=== PATIENT | male | born 1940 | race Asian ===

== ENCOUNTER 2017-07-30 02:16 | Emergency (ER) | payer MEDICARE, OTHER ==
[~2017-07-30] VITALS: Ht 167.6 cm; Wt 72.6 kg
[~2017-07-30 02:16] MED LIST: ASA81 PO; HYT1 PO; LIP80 PO; LOSA100T11 PO; METF1000 PO; METO-442 PO; NOR10 PO; OMEP20CA10 PO
[2017-07-30 02:25] VITALS: BP_SYST 146
[2017-07-30 03:10] VITALS: BP_SYST 146
== END 2017-07-30 03:10 | disposition home or self-care (01) ==
LOC: SED 02:16
DX: I10 Essential (primary) hypertension (principal); E11.9 Type 2 diabetes mellitus without complications; Z90.49 Acquired absence of other specified parts of digestive tract; Z79.899 Other long term (current) drug therapy
CPT/HCPCS: 99281

== ENCOUNTER 2018-10-23 21:32 | Emergency (ER) | payer OTHER ==
[~2018-10-23] VITALS: Ht 167.6 cm; Wt 68.0 kg
[~2018-10-23 21:32] MED LIST changes: -HYT1 PO; -LOSA100T11 PO; -NOR10 PO; +SILO8CAP2 PO; +VALS320T2 PO
[2018-10-23 21:46] VITALS: BP_SYST 133
--- NOTE | 2018-10-23 21:52 | NUR ---
Patient AOx4, ambulatory, presents to ER with complaint of occiput discomfort 1-2 pain. Patient states he fell on friday and hit his head, at that time he didn't exhibit symptoms or discomfort. Patient states that the occiput discomfort began. Patient states no visual changes. Patient has not medicated for pain. No other symptoms or complaints.
--- NOTE | 2018-10-23 21:52 | NUR ---
Patient to ER bed 08 to gown for evaluation. Side rails up. Report given to HARRY Coelho.
--- NOTE | 2018-10-23 21:59 | NUR ---
ER MD Mcgarry at bedside for medical evaluation.
[2018-10-23] MEDS ORDERED: IBUPROFEN 600 MG TABLET PO ONE (22:00)
--- NOTE | 2018-10-23 22:08 | NUR ---
Ibuprofen 600mg PO administered. Pt tolerated well. No adverse reactions noted. Will continue to monitor.
--- NOTE | 2018-10-23 22:13 | NUR ---
Pt taken to radiology via gurney in stable condition.
--- NOTE | 2018-10-23 22:30 | NUR ---
Pt returned from radiology via [facility] in stable condition.
--- NOTE | 2018-10-23 23:21 | NUR ---
Pt reports 0/10 pain
[2018-10-23 23:40] VITALS: BP_SYST 128
--- NOTE | 2018-10-23 23:40 | NUR ---
Patient given written and verbal discharge instructions and verbalizes understanding. ER MD discussed with patient the results and treatment provided. Patient in stable condition. ID arm band removed. Rx of Ibuprofen given. Patient educated on pain management and to follow up with PMD. Pain Scale 0/10. Opportunity for questions provided and answered. Medication side effect fact sheet provided.
== END 2018-10-23 23:40 | disposition home or self-care (01) ==
LOC: SED 21:32
DX: S16.1XXA Strain of muscle, fascia and tendon at neck level, initial encounter (principal); S09.90XA Unspecified injury of head, initial encounter; E11.9 Type 2 diabetes mellitus without complications; I10 Essential (primary) hypertension; Z90.49 Acquired absence of other specified parts of digestive tract; Z79.82 Long term (current) use of aspirin; Z79.899 Other long term (current) drug therapy; W01.198A Fall on same level from slipping, tripping and stumbling with subsequent striking against other object, initial encounter; Y93.89 Activity, other specified; Y92.89 Other specified places as the place of occurrence of the external cause; Y99.8 Other external cause status
CPT/HCPCS: 70450-TC; 72125-TC; 99284

== ENCOUNTER 2020-01-26 07:03 | Emergency (ER) | payer OTHER ==
[~2020-01-26] VITALS: Ht 160 cm; Wt 68.0 kg
[2020-01-26 07:03] VITALS: BP_SYST 152
[~2020-01-26 07:03] MED LIST changes: -OMEP20CA10 PO; +OMEP20CA11 PO
--- NOTE | 2020-01-26 07:03 | NUR ---
Patient to ER bed 3 to gown for evaluation. Side rails up. Report given to HARRY Choi.
--- NOTE | 2020-01-26 07:05 | NUR ---
Pt walked in to ER with c/o diarrhea x1 day with dark red blood noted. Denies any other trauma. No n/v or abdominal pain. Currently resting in bed, will continue to monitor.
--- NOTE | 2020-01-26 07:10 | NUR ---
ER Dr. Alejandro at bedside examining patient.
[2020-01-26] MEDS ORDERED: NACL 0.9% 1,000 ML IV ONE (07:12)
[2020-01-26] MEDS ORDERED: PANTOPRAZOLE SODIUM 40 MG/VIAL (PROTONIX) IVP ONE (07:15)
--- NOTE | 2020-01-26 07:15 | NUR ---
# 20 gauge angiocath placed to LAC. Use of asceptic technique. Opsite placed over site. Blood return noted. Blood for lab drawn from site. Flushed with 10 cc of normal saline. No evidence of infiltration noted. Patient tolerated well.
--- NOTE | 2020-01-26 07:20 | NUR ---
EKG performed at BS by RN. Physician given copy of EKG for review.
[2020-01-26 07:41] LABS: BASOPHILS % (AUTO) 1.1 % (0.0-2.0); EOSINOPHILS # (AUTO) 0.2 K/uL (0.0-0.4); HEMATOCRIT 41.7 % (36-54); HEMOGLOBIN 13.6 g/dL (14.0-18.0); LYMPHOCYTES # (AUTO) 0.9 K/uL (1.0-5.5); LYMPHOCYTES % (AUTO) 22.6 % (20.5-51.5); MEAN CORPUSCULAR HEMOGLOBIN 27 pg (27-31); MEAN CORPUSCULAR HGB CONC 33 % (32-36); MEAN CORPUSCULAR VOLUME 84 fL (79.0-98.0); MONOCYTES # (AUTO) 0.3 K/uL (0.0-1.0); MONOCYTES % (AUTO) 6.8 % (1.7-9.3); NEUTROPHILS # (AUTO) 2.6 K/uL (1.8-7.7); NEUTROPHILS % (AUTO) 64.5 % (40.0-70.0); PLATELET COUNT (AUTO) 151 K/uL (130-430); RED BLOOD CELL COUNT(AUTO) 4.98 MIL/uL (4.2-6.2); RED CELL DISTRIBUTION WIDTH 14.7 % (9.0-15.0)
[2020-01-26 07:55] LABS: BILIRUBIN,URINE NEGATIVE (NEGATIVE); BLOOD, URINE NEGATIVE (NEGATIVE); CLARITY/URINE CLEAR (CLEAR); COLOR,URINE YELLOW (YELLOW); GLUCOSE,URINE 3+ (NEGATIVE); KETONES,URINE NEGATIVE (NEGATIVE); LEUKOCYTE ESTERASE ,URINE NEGATIVE (NEGATIVE); NITRITE, URINE NEGATIVE (NEGATIVE); PH,URINE 5.5 (5.0-8.0); PROTEIN URINE TRACE (NEGATIVE); UROBILINOGEN,URINE 0.2 (0.2-1.0)
--- NOTE | 2020-01-26 07:55 | NUR ---
1L NS bolus infusing as ordered.
[2020-01-26 07:57] LABS: ANION GAP 9 (5-15); CALCIUM 8.4 mg/dL (8.4-11.0); CHLORIDE 104 mmol/L (98-107); CREATININE 0.94 mg/dL (0.55-1.30); GLUCOSE 138 mg/dL (70-99); POTASSIUM 3.9 mmol/L (3.5-5.1); SODIUM SERUM 139 mmol/L (136-145); UREA NITROGEN, BLOOD 20 mg/dL (8-21)
[2020-01-26 08:02] LABS: ALANINE AMINOTRANSFERASE 30 U/L (12-78); ALBUMIN 3.8 g/dL (3.4-4.8); AMYLASE 74 U/L (0-100); ASPARTATE AMINOTRANSFERASE 20 U/L (10-37); LIPASE 179 U/L (73-393); TOTAL BILIRUBIN 0.5 mg/dL (0.0-1.0)
[2020-01-26] MEDS ORDERED: PANTOPRAZOLE SODIUM 40 MG/VIAL (PROTONIX) ONE (08:06)
[2020-01-26 08:18] LABS: BACTERIA,URINE FEW /HPF (None Seen); MUCUS,URINE 1+ /LPF (None Seen); RBC,URINE 0-3 /HPF (0-3); WBC,URINE 0-3 /HPF (0-3)
--- NOTE | 2020-01-26 09:22 | NUR ---
Pt belongings list completed.
[2020-01-26 10:35] VITALS: BP_SYST 140
--- NOTE | 2020-01-26 10:35 | NUR ---
Patient to be transferred to [facility]. Is being transferred due to higher level of care. Receiving facility has accepting physician and available space. ER physician has signed transfer form. Patient or responsible democrat has agreed to transfer and signed form. Patient belongings inventoried and will be sent with patient. Copy of nursing notes, lab reports, EKG, Physicians Orders and X-rays to be sent with patient. Report called to HARRY Monet at receiving facility. Receiving physician is Dr. Fuad Salvador. [facility] has been called for transfer. ETA is [id number].
== END 2020-01-26 10:35 | disposition short-term general hospital (02) ==
LOC: SED 07:03
DX: K92.1 Melena (principal); I10 Essential (primary) hypertension; E11.9 Type 2 diabetes mellitus without complications; Z79.82 Long term (current) use of aspirin; Z79.84 Long term (current) use of oral hypoglycemic drugs; Z79.899 Other long term (current) drug therapy
CPT/HCPCS: 36415; 71045; 80053; 81000; 82150; 83605; 83690; 85025; 85610; 85730; 87040; 93005; 96374; 99285; C9113; J7030

== ENCOUNTER 2021-03-30 13:58 | Emergency (ER) | payer OTHER ==
[~2021-03-30] VITALS: Ht 165.1 cm; Wt 68.9 kg
[~2021-03-30 13:58] MED LIST changes: -OMEP20CA11 PO; +OMEP20CA15 PO
[2021-03-30 15:09] VITALS: BP_SYST 147
[2021-03-30] MEDS ORDERED: IBUP-1969 PO (19:52)
[2021-03-30] MEDS ORDERED: PRED20TA PO (19:52)
[2021-03-30] MEDS ORDERED: IBUPROFEN 600 MG TABLET PO ONE (20:00)
[2021-03-30 20:06] VITALS: BP_SYST 132
== END 2021-03-30 20:06 | disposition home or self-care (01) ==
LOC: SED 13:58
DX: S46.912A Strain of unspecified muscle, fascia and tendon at shoulder and upper arm level, left arm, initial encounter (principal); M19.012 Primary osteoarthritis, left shoulder; I10 Essential (primary) hypertension; E11.9 Type 2 diabetes mellitus without complications; Z79.82 Long term (current) use of aspirin; Z79.84 Long term (current) use of oral hypoglycemic drugs; Z79.899 Other long term (current) drug therapy; X50.9XXA Other and unspecified overexertion or strenuous movements or postures, initial encounter; Y93.89 Activity, other specified; Y92.89 Other specified places as the place of occurrence of the external cause; Y99.8 Other external cause status
CPT/HCPCS: 73030; 99283